=== PATIENT | female | born 1995 | race Caucasian/White ===

== ENCOUNTER 2017-02-18 03:36 | Emergency (ER) | payer OTHER ==
--- NOTE | 2017-02-18 04:23 | ED CLINICAL REPORT ---
Clinical Report - Physicians/Mid Levels [facility] [address] [place] [address] 02/18/2017 3:38 [id number] Time Seen: 04:19 Feb 18 2017. Arrived- By private vehicle. Historian- patient. CPT: ER phys charges level 3 (#[id number]). HISTORY OF PRESENT ILLNESS Chief Complaint: Sunburn. At its maximum, severity described as 2 / 10. When seen in the E.D., severity described as moderate. Modifying factors. Not worsened by anything. Not relieved by anything. This started today and is still present. (Tenderness over the chest , arms and face.). Similar symptoms previously: None. Recent medical care: Not recently seen/assessed. REVIEW OF SYSTEMS No fever, sore throat, sinus drainage, nasal congestion or cough. No difficulty breathing, chest pain, abdominal pain, nausea or vomiting. No chills, difficulty with urination, back pain or calf pain. The patient has had skin rash. All systems otherwise negative, except as recorded above. PAST HISTORY See nurses notes. Additional Surgeries: no known surgeries. Medications: Ibuprofen Oral. Allergies: No Known Drug Allergy. SOCIAL HISTORY Never smoker. Occasional alcohol use. No drug use. ADDITIONAL NOTES The nursing notes have been reviewed. PHYSICAL EXAM Vital Signs: 02/18/2017 03:47 BP: 121/70. HR: 89. RR: 18. O2 saturation: 98%. Temp: 97.6 F. Pain level now: 6/10. Appearance: Alert. Eyes: Eyes normal inspection. ENT: Pharynx normal. Neck: Normal inspection. CVS: Normal heart rate and rhythm. Heart sounds normal. Pulses normal. Respiratory: No respiratory distress. Breath sounds normal. Chest nontender. Abdomen: Soft and nontender. Back: Normal inspection. Skin: (Sunburn over the face, back, chest and arms. These are mostly 1st degree. There are a few second degree ramos over the face, neck and arms.). Extremities: Extremities exhibit normal ROM. No lower extremity edema. Neuro: Oriented X 3. No motor deficit. No sensory deficit. PROGRESS AND PROCEDURES Patient/family counseled. Disposition: Discharged. Condition: stable. CLINICAL IMPRESSION First degree sunburn (small area of second degree.). INSTRUCTIONS Drink plenty of fluids. Warnings: Further evaluation is necessary. Your Current Medications: CONTINUE TAKING THE FOLLOWING MEDICATIONS: Ibuprofen Oral. Prescription Medications: Hydrocodone/APAP 5mg/325mg: take 1 to 2 orally every 6 hours as needed for pain. Dispense fifteen (15). No refills. Follow-up: Follow up with your doctor in five days if not better. Understanding of the discharge instructions verbalized by patient. (Electronically signed by Alex Perez MD 03/02/2017 23:05)
--- NOTE | 2017-02-18 04:23 | ED NURSING NOTES ---
Clinical Report - Nurses [facility] [place] [address] [place] [address] 02/18/2017 3:38 Patient: MARTÍN ACOSTA TRIAGE Triage time 03:47. Acuity: LEVEL 3. Chief Complaint: (Sun burn). --03:52 Sheriff Wheeler R.N. 03:47 02/18/17. BP: 121/70. HR: 89. RR: 18. O2 saturation: 98%. Temp: 97.6 F. Pain level now: 01/25. --03:52 Sheriff Wheeler R.N. Weight: 90.7 kg stated. Height/Length: 63 inches Per Patient. BMI: 35.4. --03:49 Sheriff Wheeler R.N. Medications Ibuprofen Oral. --03:48 Sheriff Wheeler R.N. Allergies No Known Drug Allergy. --03:48 Sheriff Wheeler R.N. History Arrived by private vehicle. Historian: patient. Unaccompanied. Onset. (2 days ago). PAST MEDICAL HX: Immunizations: status is unknown. SURGERY HX: No history of previous surgery. SOCIAL HX: Never smoker. Alcohol use; consumes beer occasionally. No drug use. SKIN INTEGRITY ASSESSMENT: Skin integrity risk assessment was performed. (blisters around forehead and arms.). Skin breakdown noted on the occipital. FALL RISK ASSESSMENT: Fall risk assessment completed. No fall risk identified. NUTRITIONAL RISK ASSESSMENT: The nutritional risk assessment revealed no deficiencies. FUNCTIONAL ASSESSMENT: Functional assessment: no impairments noted. LEARNING NEEDS ASSESSMENT: The learning needs assessment revealed no barriers. --03:52 Sheriff Wheeler R.N. PROBLEMS: None. --03:50 Sheriff Wheeler R.N. PHYSICAL ASSESSMENT Ambulatory to room. GENERAL / NEURO / PSYCH: Alert. Oriented X 4. Appears in no acute distress. RESPIRATORY: Respirations not labored. CVS: Capillary refill less than 2 seconds. SKIN: Skin is warm and dry. ( Blisters around forehead and shoulders.). --03:53 Sheriff Wheeler R.N. NURSING PROGRESS NOTES Head of bed elevated. Two patient identifiers checked. Call light placed in reach. Side rails up x 2. Bed placed in lowest position. Brakes of bed on. --03:53 Sheriff Wheeler R.N. DISPOSITION / DISCHARGE Condition at departure: stable. No learning barriers present. Discharge instructions provided and reviewed with the patient. Patient verbalized understanding. Written instructions provided in French. The patient was discharged by the physician. She was discharged home and unaccompanied at time of discharge. She left the Emergency Department ambulatory and via private vehicle. Patient driving. --04:35 Sheriff Wheeler R.N. Locked/Released at 02/18/2017 4:36 by Sheriff Wheeler R.N.
--- NOTE | 2017-02-18 04:23 | ED NURSING NOTES ---
Clinical Report - Nurses [facility] [place] [address] [place] [address] 02/18/2017 3:38 Patient: MARTÍN ACOSTA TRIAGE Triage time 03:47. Acuity: LEVEL 3. Chief Complaint: (Sun burn). --03:52 Sheriff Wheeler R.N. 03:47 02/18/17. BP: 121/70. HR: 89. RR: 18. O2 saturation: 98%. Temp: 97.6 F. Pain level now: 01/25. --03:52 Sheriff Wheeler R.N. Weight: 90.7 kg stated. Height/Length: 63 inches Per Patient. BMI: 35.4. --03:49 Sheriff Wheeler R.N. Medications Ibuprofen Oral. --03:48 Sheriff Wheeler R.N. Allergies No Known Drug Allergy. --03:48 Sheriff Wheeler R.N. History Arrived by private vehicle. Historian: patient. Unaccompanied. Onset. (2 days ago). PAST MEDICAL HX: Immunizations: status is unknown. SURGERY HX: No history of previous surgery. SOCIAL HX: Never smoker. Alcohol use; consumes beer occasionally. No drug use. SKIN INTEGRITY ASSESSMENT: Skin integrity risk assessment was performed. (blisters around forehead and arms.). Skin breakdown noted on the occipital. FALL RISK ASSESSMENT: Fall risk assessment completed. No fall risk identified. NUTRITIONAL RISK ASSESSMENT: The nutritional risk assessment revealed no deficiencies. FUNCTIONAL ASSESSMENT: Functional assessment: no impairments noted. LEARNING NEEDS ASSESSMENT: The learning needs assessment revealed no barriers. --03:52 Sheriff Wheeler R.N. PROBLEMS: None. --03:50 Sheriff Wheeler R.N. PHYSICAL ASSESSMENT Ambulatory to room. GENERAL / NEURO / PSYCH: Alert. Oriented X 4. Appears in no acute distress. RESPIRATORY: Respirations not labored. CVS: Capillary refill less than 2 seconds. SKIN: Skin is warm and dry. ( Blisters around forehead and shoulders.). --03:53 Sheriff Wheeler R.N. NURSING PROGRESS NOTES Head of bed elevated. Two patient identifiers checked. Call light placed in reach. Side rails up x 2. Bed placed in lowest position. Brakes of bed on. --03:53 Sheriff Wheeler R.N. DISPOSITION / DISCHARGE Condition at departure: stable. No learning barriers present. Discharge instructions provided and reviewed with the patient. Patient verbalized understanding. Written instructions provided in Italian. The patient was discharged by the physician. She was discharged home and unaccompanied at time of discharge. She left the Emergency Department ambulatory and via private vehicle. Patient driving. --04:35 Sheriff Wheeler R.N. Locked/Released at 02/18/2017 4:36 by Sheriff Wheeler R.N.
--- NOTE | 2017-02-18 04:23 | ED CLINICAL REPORT ---
Clinical Report - Physicians/Mid Levels [facility] [address] [place] [address] 02/18/2017 3:38 [id number] Time Seen: 04:19 Feb 18 2017. Arrived- By private vehicle. Historian- patient. CPT: ER phys charges level 3 (#702166). HISTORY OF PRESENT ILLNESS Chief Complaint: Sunburn. At its maximum, severity described as 2 / 10. When seen in the E.D., severity described as moderate. Modifying factors. Not worsened by anything. Not relieved by anything. This started today and is still present. (Tenderness over the chest , arms and face.). Similar symptoms previously: None. Recent medical care: Not recently seen/assessed. REVIEW OF SYSTEMS No fever, sore throat, sinus drainage, nasal congestion or cough. No difficulty breathing, chest pain, abdominal pain, nausea or vomiting. No chills, difficulty with urination, back pain or calf pain. The patient has had skin rash. All systems otherwise negative, except as recorded above. PAST HISTORY See nurses notes. Additional Surgeries: no known surgeries. Medications: Ibuprofen Oral. Allergies: No Known Drug Allergy. SOCIAL HISTORY Never smoker. Occasional alcohol use. No drug use. ADDITIONAL NOTES The nursing notes have been reviewed. PHYSICAL EXAM Vital Signs: 02/18/2017 03:47 BP: 121/70. HR: 89. RR: 18. O2 saturation: 98%. Temp: 97.6 F. Pain level now: 6/10. Appearance: Alert. Eyes: Eyes normal inspection. ENT: Pharynx normal. Neck: Normal inspection. CVS: Normal heart rate and rhythm. Heart sounds normal. Pulses normal. Respiratory: No respiratory distress. Breath sounds normal. Chest nontender. Abdomen: Soft and nontender. Back: Normal inspection. Skin: (Sunburn over the face, back, chest and arms. These are mostly 1st degree. There are a few second degree ramos over the face, neck and arms.). Extremities: Extremities exhibit normal ROM. No lower extremity edema. Neuro: Oriented X 3. No motor deficit. No sensory deficit. PROGRESS AND PROCEDURES Patient/family counseled. Disposition: Discharged. Condition: stable. CLINICAL IMPRESSION First degree sunburn (small area of second degree.). INSTRUCTIONS Drink plenty of fluids. Warnings: Further evaluation is necessary. Your Current Medications: CONTINUE TAKING THE FOLLOWING MEDICATIONS: Ibuprofen Oral. Prescription Medications: Hydrocodone/APAP 5mg/325mg: take 1 to 2 orally every 6 hours as needed for pain. Dispense fifteen (15). No refills. Follow-up: Follow up with your doctor in five days if not better. Understanding of the discharge instructions verbalized by patient. (Electronically signed by Alex Perez MD 03/02/2017 23:05)
--- NOTE | 2017-03-02 23:05 | ED MED RECONCILIATION SUMMARY ---
Patient: MARTÍN ACOSTA Medication Reconciliation Report [facility] VisitID: [id number] [address] [place] [address] 22y, F Registration Date/Time: 02/18/2017 Weight: 90.7 kg Height/Length: 63 in. BMI: 35.4 ALLERGIES: No Known Drug Allergy The patient's Home Medications are listed below: CONTINUE TAKING THE FOLLOWING MEDICATIONS: Ibuprofen Oral The source(s) of the original Home Medication information: Not obtained. The following Medications were given to the patient in the Emergency Department: None. The following Medications were prescribed to the patient: Hydrocodone/APAP 5mg/325mg: take 1 to 2 orally every 6 hours as needed for pain. Dispense fifteen (15). No refills. -- Alex Perez MD
--- NOTE | 2017-03-02 23:05 | ED MAR SUMMARY ---
..... Medication Administration Record [facility] [address], [place] [id number] Patient: MARTÍN ACOSTA Visit ID: [id number] 22y, F Weight: 90.7 kg Height/Length: 63 in BMI: 35.4 ALLERGIES: No Known Drug Allergy
--- NOTE | 2017-03-02 23:05 | ED DISCHARGE INSTRUCTIONS ---
Patient: MARTÍN ACOSTA General Instructions [facility] VisitID: [id number] [place] [address] 22y, F Registration Date/Time: 02/18/2017 First degree sunburn (small area of second degree.). INSTRUCTIONS Drink plenty of fluids. Warnings: Further evaluation is necessary. Your Current Medications: CONTINUE TAKING THE FOLLOWING MEDICATIONS: Ibuprofen Oral. Prescription Medications: Hydrocodone/APAP 5mg/325mg: take 1 to 2 orally every 6 hours as needed for pain. Dispense fifteen (15). No refills. Follow-up: Follow up with your doctor in five days if not better. Understanding of the discharge instructions verbalized by patient. ADDITIONAL INFORMATION Sunburn A sunburn is an injury to the skin caused by over-exposure to ultraviolet (UV) light from the sun. The skin becomes pink or red and painful. There may be headache and a low grade fever. Very severe sunburns may cause blistering and fluid draining from the skin. Open blisters may become infected, so watch for the signs below. The reaction begins to get better after 12 days. A few days later the skin begins to peel. Depending on how severe the burn is, it may take up to three weeks to fully heal. Home care The following guidelines will help you care for you sunburn at home: 1) Apply an ice pack (ice cubes in a plastic bag, wrapped in a towel) over the injured area for 20 minutes every 12 hours the first day for pain relief. Continue this 34 times a day until the pain goes away. Cool baths and showers will also give relief. 2) Rujl-cwm-lvsrdmi first-aid creams and sprays contain lidocaine or benzocaine, an anesthetic which also relieves pain. However, some persons are sensitive to "katy". If redness or itching increases, discontinue their use. 3) If blisters appear, don't break them. Open blisters slow the healing process and increase the risk of infection. Treat open blisters with antibacterial cream or ointment. 4) Wash the burned area daily with soap and water. Pat dry with a clean towel. Apply a moisturizing cream with aloe. Hydrocortisone cream (sold over the counter) may help decrease pain and swelling and speed up healing. If a dressing was applied, reapply it until any open blisters dry up. If the bandage sticks, soak it off in warm water. 5) You may use ibuprofen or naproxen to control pain, unless another pain medicine was prescribed. If you have chronic liver or kidney disease or ever had a stomach ulcer or GI bleeding, talk with your doctor before using these medicines. Do not use ibuprofen in children under six months of age. 6) Drink plenty of fluids to avoid dehydration. Prevention Sun exposure damages the DNA of skin cells and contributes to aging skin. It is the main cause of skin cancer. Protect your skin using the tips below: Limit your exposure to UV light. The sun is strongest during the hours 10 a.m. and 4 p.m. If possible, arrange your sun exposure to be before or after those hours. The effect is more intense at the beach where light reflects off the sand and water, and at higher altitudes, especially where there is reflecting snow. You can even get a sunburn on a cloudy day, since most of the UV light passes through clouds. Cover up with clothing and a hat. Clothing is more effective than sunscreen in blocking UV light. Stay in the shade or carry an umbrella. Apply sunscreen to uncovered skin. Reapply every two hours, and sooner if it is washed away by sweating or water. Use a sunscreen rated at SPF 15 or higher. Wear sunglasses to protect your eyes from UV exposure. Many heart, nausea, anti-inflammatory, and diabetic medications, as well as antibiotics and diuretics, can increase yoursensitivityto the sun. Check medication pamphlets and talk with your doctor if you are unsure about your increased risk of sun sensitivity. Sunscreens may not prevent this response. Follow-up care Most sunburns heal without infection. Occasionally an infection may occur despite proper treatment. Therefore, watch for the signs of infection listed below. When to seek medical care Get prompt medical attention if any of the following occur: Increasing pain Increasing redness, or red streaks leading away from an open blister Swelling or pus coming from open blisters Fever over 100.4 F (38.0 C) You have been given the following additional information: Sunburn (Electronically signed by Alex Perez MD 03/02/2017 23:05)
--- NOTE | 2017-03-02 23:05 | ED MAR SUMMARY ---
..... Medication Administration Record [facility] [address], [place] [id number] Patient: MARTÍN ACOSTA Visit ID: [id number] 22y, F Weight: 90.7 kg Height/Length: 63 in BMI: 35.4 ALLERGIES: No Known Drug Allergy
--- NOTE | 2017-03-02 23:05 | ED MED RECONCILIATION SUMMARY ---
Patient: MARTÍN ACOSTA Medication Reconciliation Report [facility] VisitID: [id number] [address] [place] [address] 22y, F Registration Date/Time: 02/18/2017 Weight: 90.7 kg Height/Length: 63 in. BMI: 35.4 ALLERGIES: No Known Drug Allergy The patient's Home Medications are listed below: CONTINUE TAKING THE FOLLOWING MEDICATIONS: Ibuprofen Oral The source(s) of the original Home Medication information: Not obtained. The following Medications were given to the patient in the Emergency Department: None. The following Medications were prescribed to the patient: Hydrocodone/APAP 5mg/325mg: take 1 to 2 orally every 6 hours as needed for pain. Dispense fifteen (15). No refills. -- Alex Perez MD
== END 2017-02-18 04:35 | disposition home or self-care (01) ==
LOC: ED SRH 03:36
DX: L55.1 Sunburn of second degree (principal)